=== PATIENT | male | born 1990 | race Native Hawaiian/Other Pacific Islander ===

== ENCOUNTER 2022-10-24 19:05 | Emergency (ER) | payer MEDICAID ==
[~2022-10-24] VITALS: Ht 177.8 cm; Wt 104.3 kg
[2022-10-24 19:16] VITALS: BP 141/74; PULSE 72; RESP 16; TEMP 97.4; O2SAT 86
--- NOTE | 2022-10-24 19:22 | NUR ---
TO LOBBY FOLLOWING TRIAGE
--- NOTE | 2022-10-24 20:51 | NUR ---
PT AMBULATED TO [facility]
[2022-10-24] MEDS ORDERED: VALA1TAB2 PO (21:37)
[2022-10-24 22:05] VITALS: BP 141/74; PULSE 72; RESP 16; TEMP 97.4; O2SAT 86
--- NOTE | 2022-10-24 22:05 | NUR ---
Patient discharged with v/s stable. Written and verbal after care instructions given and explained. Patient alert, oriented and verbalized understanding of instructions. Ambulatory with steady gait. All questions addressed prior to discharge. ID band removed. Patient advised to follow up with PMD. Rx of VALTREX given. Patient educated on indication of medication including possible reaction and side effects. Opportunity to ask questions provided and answered.
== END 2022-10-24 22:05 | disposition home or self-care (01) ==
LOC: MED 19:05
DX: B02.9 Zoster without complications (principal); Z76.0 Encounter for issue of repeat prescription
CPT/HCPCS: 99281

== ENCOUNTER 2022-11-04 10:46 | Emergency (ER) | payer MEDICAID ==
[~2022-11-04] VITALS: Ht 177.8 cm; Wt 96.6 kg
[~2022-11-04 10:46] MED LIST: VALA1TAB2 PO
[2022-11-04 11:10] VITALS: BP 146/99; PULSE 63; RESP 16; TEMP 97.9; O2SAT 99
[2022-11-04] MEDS ORDERED: ATA25 PO (11:32)
[2022-11-04] MEDS ORDERED: LORA10TA19 PO (11:32)
[2022-11-04 11:40] VITALS: BP 138/81; PULSE 71; RESP 18; TEMP 97.9; O2SAT 99
== END 2022-11-04 11:30 | disposition home or self-care (01) ==
LOC: MED 11:01
DX: L29.9 Pruritus, unspecified (principal); J45.909 Unspecified asthma, uncomplicated; Z79.899 Other long term (current) drug therapy
CPT/HCPCS: 99283

== ENCOUNTER 2023-10-19 17:17 | Emergency (ER) | payer MEDICAID, OTHER ==
[~2023-10-19] VITALS: Ht 177.8 cm; Wt 108.4 kg
[~2023-10-19 17:17] MED LIST changes: +ATA25 PO; +LORA10TA19 PO
[2023-10-19 17:25] VITALS: BP 143/92; PULSE 77; RESP 16; TEMP 97; O2SAT 99
[2023-10-19] MEDS ORDERED: VALA1TAB40 PO (17:44)
[2023-10-19] MEDS ORDERED: LORA10TA19 PO (17:44)
== END 2023-10-19 18:01 | disposition home or self-care (01) ==
LOC: MED 17:17
DX: B02.9 Zoster without complications (principal); Z76.0 Encounter for issue of repeat prescription; R21 Rash and other nonspecific skin eruption; Z79.899 Other long term (current) drug therapy
CPT/HCPCS: 99281